=== PATIENT | male | born 1970 | race Caucasian/White ===

== ENCOUNTER 2016-10-27 10:09 | Emergency (ER) | payer OTHER, SELFPAY ==
[2016-10-27] MEDS ORDERED: methylPREDNISolone Acetate 40 mg/ml Vial ONE (10:21)
[2016-10-27] MEDS ORDERED: Dexamethasone 10 MG/ML VIAL ONE (10:21)
--- NOTE | 2016-10-27 11:13 | RAD ---
CHEST ONE VIEW: History: Cough. Comparison: 08-06-16 FINDINGS: The cardiac silhouette and pulmonary vasculature are unremarkable. Mediastinum is midline. There i s no confluent air space consolidation or evidence of pneumothorax. Old left rib fractures are gain demonstrated. IMPRESSION: No active cardiopulmonary abnormalities are demonstrated. POS: [facility]
[2016-10-27] MEDS ORDERED: Albuterol Sulfate 2.5 mg/0.5 ml Neb ONE ×2 (11:24→11:25)
--- NOTE | 2016-10-27 12:19 | ERRECORD ---
[facility] EMERGENCY RECORD HPI SHORTNESS OF BREATH (10:19 SHAN) CHIEF COMPLAINT: Patient presents for evaluation of shortness of breath, Patient presents for evaluation of adult male with shortness of breath; missed pcp apts, and couldn't get more refills. HISTORIAN: History provided by patient. QUALITY: Symptoms described as tightness, Symptoms described as wheezing. TIME COURSE: Gradual onset of symptoms. ASSOCIATED WITH: Associated with cough. EXACERBATED BY: Patient's condition exacerbated by nothing. RELIEVED BY: Patient's condition relieved by nothing. ROS (10:20 SHAN) CONSTITUTIONAL: Negative constitutional review of systems, Historian denies chills, denies fever. EYES: Negative eye review of systems. ENT: Negative ears, nose, throat review of systems. CARDIOVASCULAR: Negative cardiovascular review of systems, Historian denies chest pain, denies palpitations. RESPIRATORY: Historian reports cough, reports shortness of breath, reports wheezing. GI: Negative gastrointestinal review of systems, Historian denies abdominal pain, denies constipation, denies diarrhea. MUSCULOSKELETAL: Negative musculoskeletal review of systems. SKIN: Negative skin review of systems. NEUROLOGIC: Negative neurologic review of systems. ENDOCRINE: Negative endocrine review of systems. HEMO/LYMPHATIC: Normal hematologic/lymphatic system review. PSYCHIATRIC: Negative psychiatric review of systems. NOTES: All other ROS is negative except as listed in HPI. PAST MEDICAL HISTORY MEDICAL HISTORY: Flu vaccine not up to date, Tetanus 2013, Pneumococcal vaccine 2013, Past medical history includes pulmonary disease, asthma, COPD, Hep C, cirrhosis,. (10:19 AWAT) MALE SURGICAL HISTORY: LEFT WRIST ORTHO REPAIR, CYST REMOVED FROM RIGHT WRIST. (10:19 AWAT) PSYCHIATRIC HISTORY: No previous psychiatric history. (10:19 AWAT) SOCIAL HISTORY: Patient denies alcohol use, Patient is a former drug user, abused marijuana, Patient is a former tobacco user, smoked cigarettes. (10:19 AWAT) NOTES: I have reviewed and agree with the PMH/PSxH/FamHx/SocHx obtained by the nurse. (10:20 SHAN) KNOWN ALLERGIES codeine (Unconfirmed) codeine sulfate: Source: Patient, - CAUSES ITCHING Penicillins: Reaction: Rash &a-1R&a+25V*p+0X*[id number]*c202B*c15G*c2P*p-0X&a-25V&a+1R Name: Nitish Craven : 1970 M45 MedRec: [id number] AcctNum: [id number] Prepared: TueOct 27, 2016 12:27 by Interface Page 1 of 4 pMD [facility] EMERGENCY RECORD CURRENT MEDICATIONS (10:17 AWAT) Pulmicort: AMPUL FOR NEBULIZATION (ML) : Strength - 1 mg/2 mL : INHALATION Patient Dose: once a day. DuoNeb: AMPUL FOR NEBULIZATION (ML) : Strength - 0.5 mg-3 mg (2.5 mg base)/3 mL : INHALATION Patient Dose: Unknown. VITAL SIGNS VITAL SIGNS: BP: 140/86, Pulse: 85, Resp: 21, Pain: 0, O2 sat: 92 on Room Air, Time: 10/27/2016 10:14. (10:14 AWAT) Temp: 98.6 (Tympanic), Time: 10/27/2016 10:20. (10:20 AWAT) BP: 120/65, Pulse: 74, Resp: 18, Temp: 97.0, Pain: 0, O2 sat: 95 on RA, Time: 10/27/2016 12:15. (12:15 MDEB) PHYSICAL EXAM (10:20 SHAN) CONSTITUTIONAL: Vital signs reviewed, Patient appears non toxic, Patient alert and oriented to person, place and time, Pt is in no apparent distress. HEAD: Head exam included findings of head atraumatic, normocephalic. EYES: Eye exam included findings of eyelids normal to inspection, Pupils equally round and reactive to light, Extraocular muscles intact. ENT: ENT exam normal, Nose exam normal, no nasal deformity, no bleeding from nares, Pharynx exam normal, Mouth exam normal, mucous membranes moist. NECK: Neck exam included findings of normal range of motion, Trachea midline. RESPIRATORY CHEST: Extensive wheezing, mild to moderate, mild ronchi. CARDIOVASCULAR: Cardiovascular assessment normal, Cardiovascular exam included findings of heart rate regular rate and rhythm, Heart sounds normal. ABDOMEN MALE: Abdominal exam included findings of abdomen nontender, Bowel sounds normal, no mass, no pulsatile masses, no peritoneal signs, no rigidity, no guarding, no rebound. BACK: Back exam included findings of normal inspection, range of motion normal, no costovertebral angle tenderness. UPPER EXTREMITY: Upper extremity exam included findings of inspection normal, Range of motion normal. LOWER EXTREMITY: Lower extremity exam included findings of inspection normal, Range of motion normal. NEURO: Neuro exam findings include patient oriented to person, place and time, Speech normal, no focal motor deficits, no focal sensory deficits. SKIN: Skin exam included findings of skin warm, dry, and normal in color. &a-1R&a+25V*p+0X*b9833M*c202B*c15G*c2P*p-0X&a-25V&a+1R Name: Nitish Craven : 1970 M45 MedRec: [id number] AcctNum: [id number] Prepared: TueOct 27, 2016 12:27 by Interface Page 2 of 4 pMD [facility] EMERGENCY RECORD LYMPHATIC: Lymphatic exam normal. PSYCHIATRIC: Psychiatric exam included findings of patient oriented to person place and time, Normal affect. MEDICATION ADMINISTRATION SUMMARY Drug Name: albuterol sulfate 2.5 mg by nebulizer on, Dose Ordered: * , Route: Nebulize, Status: Given, Time: 11:25 10/27/2016, Drug Name: DuoNeb, Dose Ordered: 1 amp(s), Route: Nebulize, Status: Given, Time: 10:35 10/27/2016, Drug Name: depomedrol 120 mg IM, Dose Ordered: * , Route: Intramuscular, Status: Given, Time: 10:32 10/27/2016, Drug Name: decadron 6 mg IM, Dose Ordered: * , Route: Intramuscular, Status: Given, Time: 10:31 10/27/2016, Detailed record available in Medication Service section. DOCTOR NOTES (:) TEXT: Chest w/o acute changes; but old left rib fractures noted. DATA REVIEWED: Xray data reviewed. PROBLEM LIST Problem Name: ACUTE HEPATITIS C, Status: Active, Date Diagnosed: , Date Resolved: , Confirm Status: Unconfirmed, Problem Name: Asthma, Status: Active, Date Diagnosed: , Date Resolved: , Confirm Status: Unconfirmed. DIAGNOSIS (12:03 ) FINAL: PRIMARY: copd exacerbation, ADDITIONAL: ACUTE BRONCHOSPASM. PRESCRIPTION Symbicort: HFA AEROSOL WITH ADAPTER (GRAM) : 160 mcg-4.5 mcg/actuation : INHALATION : Quantity: 2 Unit: inhalation Route: INHALATION Schedule: 2 times a day (before meals) Dispense: 1 Unit: units May substitute. Refills: 1 . (12:04 JAIRO) NOTES: No Refills. (12:04 JAIRO) albuterol sulfate inhalation: VIAL, NEBULIZER (ML) : 2.5 mg/3 mL (0.083 %) : INHALATION : Quantity: 1 Unit: vial(s) Route: INHALATION Schedule: every 4 hours prn Dispense: 120 Unit: amp(s) May substitute. Refills: No Refills . (12: JAIRO) NOTES: No Refills. (12: JAIRO) Zithromax oral: CAPSULE : 250 mg : ORAL : Quantity: 1 Unit: tab(s) Route: ORAL Schedule: once a day Dispense: 8 Unit: tab(s) May substitute. Refills: No Refills . (12: JAIRO) NOTES: two now and one a day &a-1R&a+25V*p+0X*b1836A*c202B*c15G*c2P*p-0X&a-25V&a+1R Name: Nitish Craven : 1970 5 MedRec: [id number] AcctNum: [id number] Prepared: TueOct 27, 2016 12:27 by Interface Page 3 of 4 pMD [facility] EMERGENCY RECORD No Refills. (12: JAIRO) DISPOSITION PATIENT: Disposition Type: Discharge, Disposition: *Discharge Home. (12:03 JAIRO) Patient left the department. (12:21 SACHIN) Bobo: BILLY=ARGENIS Morales, Guillermo STEPHENSON=ARGENIS Gupta, Yaquelin GILL=MD García Stanley &a-1R&a+25V*p+0X*[id number]*c202B*c15G*c2P*p-0X&a-25V&a+1R Name: Nitish Craven : 1970 M45 MedRec: [id number] AcctNum: [id number] Prepared: TueOct 27, 2016 12:27 by Interface Page 4 of 4 pMD MTDD
--- NOTE | 2016-10-27 12:23 | PICIS ---
[facility] EMERGENCY RECORD TRIAGE (10:16 AWAT) TRIAGE NOTES: shortness of breath. He says he is out of Nebs & his PCP wouldnt fill it over the phone yesterday. He says he is a month overdue from seeing his PCP. (10:16 AWAT) PATIENT: NAME: Nitish Craven, AGE: 45, GENDER: male, : Sun 1970, TIME OF GREET: TueOct 27, 2016 10:10, PREFERRED LANGUAGE: Indian, ETHNICITY: Not or , FALL RISK: NO, ECODE BILLING MAP: [facility] ER, SSN: [id number], Zip Code: [address], KG WEIGHT: 108.86, PHONE: , , , PERSON ID: [id number], PCP: MD KAMLA, ERIC. (10:16 AWAT) COMPLAINT: DIFFICULTY BREATHING. (10:16 AWAT) ADMISSION: URGENCY: 4 Non Urgent, ADMISSION SOURCE: Home, TRANSPORT: Walk-in, BED: ED -05. (10:16 AWAT) SIRS SCORING: Heart Rate 55-109 (0), Temp range 96.8-101.1 (0), respiratory rate 12-24 (0), Mental Status altered: no (0). (10:19 AWAT) PROVIDERS: TRIAGE NURSE: Guillermo Morales RN. (10:16 AWAT) VITAL SIGNS: BP 140/86, Pulse 85, Resp 21, Pain 0, O2 Sat 92, on Room Air, Time 10/27/2016 10:14. (10:14 AWAT) PREVIOUS VISIT ALLERGIES: codeine sulfate, Penicillins. (10:16 AWAT) codeine sulfate, Penicillins. (10:19 AWAT) KNOWN ALLERGIES codeine (Unconfirmed) codeine sulfate: Source: Patient, - CAUSES ITCHING Penicillins: Reaction: Rash CURRENT MEDICATIONS (10:17 AWAT) Pulmicort: AMPUL FOR NEBULIZATION (ML) : Strength - 1 mg/2 mL : INHALATION Patient Dose: once a day. DuoNeb: AMPUL FOR NEBULIZATION (ML) : Strength - 0.5 mg-3 mg (2.5 mg base)/3 mL : INHALATION Patient Dose: Unknown. VITAL SIGNS VITAL SIGNS: BP: 140/86, Pulse: 85, Resp: 21, Pain: 0, O2 sat: 92 on Room Air, Time: 10/27/2016 10:14. (10:14 AWAT) Temp: 98.6 (Tympanic), Time: 10/27/2016 10:20. (10:20 AWAT) BP: 120/65, Pulse: 74, Resp: 18, Temp: 97.0, Pain: 0, O2 sat: 95 on RA, Time: 10/27/2016 12:15. (12:15 MDEB) NURSING ASSESSMENT: RESPIRATORY /CHEST (10:20 AWAT) CONSTITUTIONAL: Simple assessment performed, Patient arrives ambulatory, Gait steady, History obtained from patient, Patient appears comfortable, Patient cooperative, Patient alert, Oriented to person, place and time, Skin warm, Skin dry, Skin normal in color, &a-1R&a+25V*p+0X*s9235Q*c202B*c15G*c2P*p-0X&a-25V&a+1R Name: Nitish Craven : 1970 M45 MedRec: [id number] AcctNum: [id number] Prepared: TueOct 27, 2016 12:33 by Interface Page 1 of 7 pMD [facility] EMERGENCY RECORD Mucous membranes pink, Mucous membranes moist, Patient, poorly groomed, with poor personal hygiene, Patient complains of SHORTNESS OF BREATH. PAIN: DENIES PAIN. RESPIRATORY/CHEST: Lungs auscultated, Breath sounds with wheezing, to bilateral upper lobes, to the right middle lobe, to bilateral lower lobes, ALL LOBES COARSE WITH WHEEZING AUSCULTATED., Respiratory assessment findings include respiratory effort easy, Respirations regular, Conversing normally, Neck and chest exam findings include trachea midline, Chest expansion equal, Chest movement symmetrical, no signs of distress, no retractions noted, no cyanosis, no jugular vein distension, no tenderness to palpation, no crepitus noted, no subcutaneous emphysema noted, no deformity noted, no associated cough noted, no associated fever, no associated fume exposure. ENT: Ear assessment findings include ear normal to inspection, Nasal assessment findings include nose normal to inspection, Mouth and throat assessment findings include mouth inspection normal, no associated fever. NOTES: Emotional support needed and given, Patient tolerated procedure well, Notes: PT CALM & COOPERATIVE. SATS 92-93% ON ROOM AIR. PT SAYS HE JUST NEEDS MORE NEBS FOR HOME & IS OUT, AND DR CASON WOULDN'T CALL ANY IN FOR HIM YESTERDAY. HE ADMITS TO BEING APPROX 1 MONTH BEHIND ON ACTUALLY SEEING HIS DRDayana... SAFETY: Side rails up, Cart/Stretcher in lowest position, Family at bedside, Call light within reach, Hospital ID band on, Physician notified of above findings. NURSING PROCEDURE: DISCHARGE NOTE (12:15 MDEB) DISCHARGE: Patient discharged to home, ambulating without assistance, family driving, accompanied by other family member, Summary of Care printed/ provided, Patient requested and was provided an electronic copy of Discharge Instructions, Transition record given to patient, Discharge instructions given to patient, Simple or moderate discharge teaching performed, MEDICATIONS, Prescriptions given and instructions on side effects given, Above person(s) verbalized understanding of discharge instructions and follow-up care, Patient treated and evaluated by physician. BELONGINGS: Belongings remain with patient, Valuables remain with patient. NOTES: Emotional support needed and given, Patient tolerated procedure well. VITAL SIGNS: BP: 120, / 65, Pulse: 74, Resp: 18, Temp: 97.0, Pain: 0, O2 sat: 95, on: RA. NURSING PROCEDURE: NURSE NOTES (11:44 MDEB) NURSES NOTES: Notes: POST ALBUTEROL TREATMENT - COURSE LUNG SOUNDS TO LLL, OTHERWISE CLEAR - NO WHEEZING NOTED. NURSING PROCEDURE: RESPIRATORY INTERVENTIONS (10:32 AWAT) &a-1R&a+25V*p+0X*n2535Q*c202B*c15G*c2P*p-0X&a-25V&a+1R Name: Nitish Craven : 1970 M45 MedRec: [id number] AcctNum: [id number] Prepared: TueOct 27, 2016 12:33 by Interface Page 2 of 7 pMD [facility] EMERGENCY RECORD PATIENT IDENTIFIER: Patient actively involved in identification process, Patient's identity verified by patient stating name, Patient's identity verified by patient stating date, Patient's identity verified by hospital ID bracelet, Patient's identity verified by family member. RESPIRATORY INTERVENTIONS: Respiratory interventions indicated for wheezing, Pre-intervention breath sounds with wheezing, ALL LOBES WHEEZY AND COARSE, Pre-intervention oxygen saturation 92%, by adult/pediatric oxisensor, multiple pulse oximetry reading, Patient given ALBUTEROL with ATROVENT, Single dose nebulizer, Dose: 1 UNIT DOSE, Patient returned demonstration of use of aerochamber, Notes: WITH HAND HELD CHAMBER. ADMINISTERED WITH O2 AT 7L/NC. SAFETY: Side rails up, Cart/Stretcher in lowest position, Family at bedside, Call light within reach, Hospital ID band on, Physician notified of above findings. ORDER DETAILS Order Name: XR Chest 1 View Portable, Status: Active, Time: 10:19 10/27/2016, User: JAIRO, - Ordered for: MD Ricky, Darinel, - Entered by: MD García Stanley - TueOct 27, 2016 10:19, - Quantity: 1. MEDICATION ADMINISTRATION SUMMARY Drug Name: albuterol sulfate 2.5 mg by nebulizer on, Dose Ordered: * , Route: Nebulize, Status: Given, Time: 11:25 10/27/2016, Drug Name: DuoNeb, Dose Ordered: 1 amp(s), Route: Nebulize, Status: Given, Time: 10:35 10/27/2016, Drug Name: depomedrol 120 mg IM, Dose Ordered: * , Route: Intramuscular, Status: Given, Time: 10:32 10/27/2016, Drug Name: decadron 6 mg IM, Dose Ordered: * , Route: Intramuscular, Status: Given, Time: 10:31 10/27/2016, Detailed record available in Medication Service section. MEDICATION SERVICE albuterol sulfate 2.5 mg by nebulizer once: Free Text order: albuterol sulfate 2.5 mg by nebulizer once : : Nebulize Ordered by: Darinel García MD Entered by: Darinel García MD TueOct 27, 2016 11:20 Documented as given by: Yaquelin Gupta RN TueOct 27, 2016 11:25 Patient, Medication, Dose, Route and Time verified prior to administration. Amount given: 2.5 mg, Site: Medication administered via Hand-held nebulizer, With oxygen, Correct patient, time, route, dose and medication confirmed prior to administration, Patient advised of actions and side-effects prior to administration, Allergies confirmed and medications reviewed prior to administration, Patient in position &a-1R&a+25V*p+0X*w2161T*c202B*c15G*c2P*p-0X&a-25V&a+1R Name: Nitish Craven : 1970 M45 MedRec: [id number] AcctNum: [id number] Prepared: TueOct 27, 2016 12:33 by Interface Page 3 of 7 pMD [facility] EMERGENCY RECORD of comfort, Side rails up, Cart in lowest position, Family at bedside. decadron 6 mg IM: Free Text order: decadron 6 mg IM : : Intramuscular Ordered by: Darinel García MD Entered by: Darinel García MD TueOct 27, 2016 10:18 , Acknowledged by: Guillermo Morales RN TueOct 27, 2016 10:26 Documented as given by: Guillermo Morales RN TueOct 27, 2016 10:31 Patient, Medication, Dose, Route and Time verified prior to administration. Amount given: 6MG, Medication administered to left deltoid, Correct patient, time, route, dose and medication confirmed prior to administration, Patient advised of actions and side-effects prior to administration, Allergies confirmed and medications reviewed prior to administration, Administered by AWATERS, Patient in position of comfort, Side rails up, Cart in lowest position, Family at bedside. depomedrol 120 mg IM: Free Text order: depomedrol 120 mg IM : : Intramuscular Ordered by: Darinel García MD Entered by: Darinel García MD TueOct 27, 2016 10:18 Documented as given by: Guillermo Morales RN TueOct 27, 2016 10:32 Patient, Medication, Dose, Route and Time verified prior to administration. Amount given: 120MG, Medication administered to right buttock, Correct patient, time, route, dose and medication confirmed prior to administration, Patient advised of actions and side-effects prior to administration, Allergies confirmed and medications reviewed prior to administration, Administered by AWATERS, Patient in position of comfort, Side rails up, Cart in lowest position, Family at bedside. DuoNeb: Order: DuoNeb (ipratropium bromide/albuterol sulfate) - Dose: 1 amp(s) : Nebulize Schedule: Now Ordered by: Darinel García MD Entered by: Darinel García MD TueOct 27, 2016 10:18 , Acknowledged by: Guillermo Morales RN TueOct 27, 2016 10:26 Documented as given by: Guillermo Morales RN TueOct 27, 2016 10:35 Patient, Medication, Dose, Route and Time verified prior to administration. Amount given: 1 NEB, Site: Medication administered via Hand-held nebulizer, With oxygen, Correct patient, time, route, dose and medication confirmed prior to administration, Patient advised of actions and side-effects prior to administration, Allergies confirmed and medications reviewed prior to administration, Administered by JULIAN MORE, Patient in position of comfort, Side rails up, Cart in lowest position, Family at bedside. HPI SHORTNESS OF BREATH (10:19 JAIRO) CHIEF COMPLAINT: Patient presents for evaluation of shortness of breath, Patient presents for evaluation of adult male with shortness of breath; missed pcp apts, and &a-1R&a+25V*p+0X*d7431D*c202B*c15G*c2P*p-0X&a-25V&a+1R Name: Nitish Craven : 1970 M45 MedRec: [id number] AcctNum: [id number] Prepared: TueOct 27, 2016 12:33 by Interface Page 4 of 7 pMD [facility] EMERGENCY RECORD couldn't get more refills. HISTORIAN: History provided by patient. QUALITY: Symptoms described as tightness, Symptoms described as wheezing. TIME COURSE: Gradual onset of symptoms. ASSOCIATED WITH: Associated with cough. EXACERBATED BY: Patient's condition exacerbated by nothing. RELIEVED BY: Patient's condition relieved by nothing. ROS (10:20 SHAN) CONSTITUTIONAL: Negative constitutional review of systems, Historian denies chills, denies fever. EYES: Negative eye review of systems. ENT: Negative ears, nose, throat review of systems. CARDIOVASCULAR: Negative cardiovascular review of systems, Historian denies chest pain, denies palpitations. RESPIRATORY: Historian reports cough, reports shortness of breath, reports wheezing. GI: Negative gastrointestinal review of systems, Historian denies abdominal pain, denies constipation, denies diarrhea. MUSCULOSKELETAL: Negative musculoskeletal review of systems. SKIN: Negative skin review of systems. NEUROLOGIC: Negative neurologic review of systems. ENDOCRINE: Negative endocrine review of systems. HEMO/LYMPHATIC: Normal hematologic/lymphatic system review. PSYCHIATRIC: Negative psychiatric review of systems. NOTES: All other ROS is negative except as listed in HPI. PAST MEDICAL HISTORY MEDICAL HISTORY: Flu vaccine not up to date, Tetanus 2014, Pneumococcal vaccine 2014, Past medical history includes pulmonary disease, asthma, COPD, Hep C, cirrhosis,. (10:19 AWAT) MALE SURGICAL HISTORY: LEFT WRIST ORTHO REPAIR, CYST REMOVED FROM RIGHT WRIST. (10:19 AWAT) PSYCHIATRIC HISTORY: No previous psychiatric history. (10:19 AWAT) SOCIAL HISTORY: Patient denies alcohol use, Patient is a former drug user, abused marijuana, Patient is a former tobacco user, smoked cigarettes. (10:19 AWAT) NOTES: I have reviewed and agree with the PMH/PSxH/FamHx/SocHx obtained by the nurse. (10:20 SHAN) PHYSICAL EXAM (10:20 SHAN) CONSTITUTIONAL: Vital signs reviewed, Patient appears non toxic, Patient alert and oriented to person, place and time, Pt is in no apparent distress. HEAD: Head exam included findings of head atraumatic, normocephalic. EYES: Eye exam included findings of eyelids normal to inspection, Pupils equally round and reactive to light, Extraocular muscles &a-1R&a+25V*p+0X*g8987A*c202B*c15G*c2P*p-0X&a-25V&a+1R Name: Nitish Craven : 1970 M45 MedRec: [id number] AcctNum: [id number] Prepared: TueOct 27, 2016 12:33 by Interface Page 5 of 7 pMD [facility] EMERGENCY RECORD intact. ENT: ENT exam normal, Nose exam normal, no nasal deformity, no bleeding from nares, Pharynx exam normal, Mouth exam normal, mucous membranes moist. NECK: Neck exam included findings of normal range of motion, Trachea midline. RESPIRATORY CHEST: Extensive wheezing, mild to moderate, mild ronchi. CARDIOVASCULAR: Cardiovascular assessment normal, Cardiovascular exam included findings of heart rate regular rate and rhythm, Heart sounds normal. ABDOMEN MALE: Abdominal exam included findings of abdomen nontender, Bowel sounds normal, no mass, no pulsatile masses, no peritoneal signs, no rigidity, no guarding, no rebound. BACK: Back exam included findings of normal inspection, range of motion normal, no costovertebral angle tenderness. UPPER EXTREMITY: Upper extremity exam included findings of inspection normal, Range of motion normal. LOWER EXTREMITY: Lower extremity exam included findings of inspection normal, Range of motion normal. NEURO: Neuro exam findings include patient oriented to person, place and time, Speech normal, no focal motor deficits, no focal sensory deficits. SKIN: Skin exam included findings of skin warm, dry, and normal in color. LYMPHATIC: Lymphatic exam normal. PSYCHIATRIC: Psychiatric exam included findings of patient oriented to person place and time, Normal affect. EVENTS TRANSFER: Triage to Emergency Main ED -05. (TueOct 27, 2016 10:16 AWAT) Removed from Emergency Main ED -05. (12:21 SACHIN) DOCTOR NOTES (11: JAIRO) TEXT: Chest w/o acute changes; but old left rib fractures noted. DATA REVIEWED: Xray data reviewed. PROBLEM LIST Problem Name: ACUTE HEPATITIS C, Status: Active, Date Diagnosed: , Date Resolved: , Confirm Status: Unconfirmed, Problem Name: Asthma, Status: Active, Date Diagnosed: , Date Resolved: , Confirm Status: Unconfirmed. DIAGNOSIS (12:03 JAIRO) FINAL: PRIMARY: copd exacerbation, ADDITIONAL: ACUTE BRONCHOSPASM. &a-1R&a+25V*p+0X*u1741L*c202B*c15G*c2P*p-0X&a-25V&a+1R Name: Nitish Craven : 1970 M45 MedRec: [id number] AcctNum: [id number] Prepared: TueOct 27, 2016 12:33 by Interface Page 6 of 7 pMD [facility] EMERGENCY RECORD DISPOSITION PATIENT: Disposition Type: Discharge, Disposition: *Discharge Home. (12:03 JAIRO) Patient left the department. (12:21 MDCLAUDETTE) INSTRUCTION (12:07 JAIRO) DISCHARGE: COPD FLARE. FOLLOWUP: MD KAMLA, [facility], [facility], [address] [place] [id number], [phone]. SPECIAL: 1. antibiotic as directed 2. symbicort as prior 3. albuterol four times a day if needed by nebulizer 4. followup soon with regular provider 5. return if condition worsens. PRESCRIPTION Symbicort: HFA AEROSOL WITH ADAPTER (GRAM) : 160 mcg-4.5 mcg/actuation : INHALATION : Quantity: 2 Unit: inhalation Route: INHALATION Schedule: 2 times a day (before meals) Dispense: 1 Unit: units May substitute. Refills: 1 . (12: [facility]) NOTES: No Refills. (12: JAIRO) albuterol sulfate inhalation: VIAL, NEBULIZER (ML) : 2.5 mg/3 mL (0.083 %) : INHALATION : Quantity: 1 Unit: vial(s) Route: INHALATION Schedule: every 4 hours prn Dispense: 120 Unit: amp(s) May substitute. Refills: No Refills . (12: [facility]) NOTES: No Refills. (12: [facility]) Zithromax oral: CAPSULE : 250 mg : ORAL : Quantity: 1 Unit: tab(s) Route: ORAL Schedule: once a day Dispense: 8 Unit: tab(s) May substitute. Refills: No Refills . (12: [facility]) NOTES: two now and one a day No Refills. (12: [facility]) IMAGING *DISCHARGE INSTRUCTIONS RECEIPT: Image captured from scanner. (12:20 MD) Page 2 added. Image captured from scanner. (12:20 MD) *SUPPLY CHARGE SHEET: Image captured from scanner. (12:21 [facility]) ADMIN (12: [facility]) DIGITAL SIGNATURE: MD García Stanley. Bobo: BILLY=ARGENIS Morales, Guillermo MDCLAUDETTE=ARGENIS Gupta, Yaquelin GILL=MD García Stanley &a-1R&a+25V*p+0X*m8805L*c202B*c15G*c2P*p-0X&a-25V&a+1R Name: Nitish Craven : 1970 M45 MedRec: [id number] AcctNum: [id number] Prepared: TueOct 27, 2016 12:33 by Interface Page 7 of 7 pMD MTDD
== END 2016-10-27 12:15 | disposition home or self-care (01) ==
LOC: MADERS 10:09
DX: J44.1 Chronic obstructive pulmonary disease with (acute) exacerbation (principal); J98.01 Acute bronchospasm
CPT/HCPCS: 71010; 96372; J1030; J1040; J1100; J7611; J7620

== ENCOUNTER 2017-02-18 14:38 | Emergency (ER) | payer SELFPAY ==
[2017-02-18] MEDS ORDERED: methylPREDNISolone Sod Succ/PF 125 MG/2 ML VIAL ONE (15:00)
--- NOTE | 2017-02-18 15:07 | RAD ---
AP VIEW OF THE CHEST: 02/18/17 INDICATION: Dyspnea. COMPARISON: Prior exam dated 10/27/16. FINDINGS: The lungs are clear. There are healed fracture deformities involving the left posterolateral chest w all. Cardiomediastinal silhouette is normal. No pleural effusion or pneumothorax is evident. IMPRESSION: No acute cardiopulmonary abnormality. POS: [facility]
== END 2017-02-18 16:08 | disposition home or self-care (01) ==
LOC: MADERS 14:38
DX: J44.1 Chronic obstructive pulmonary disease with (acute) exacerbation (principal); J45.909 Unspecified asthma, uncomplicated; K74.60 Unspecified cirrhosis of liver; Z86.19 Personal history of other infectious and parasitic diseases; Z87.891 Personal history of nicotine dependence; Z79.899 Other long term (current) drug therapy
CPT/HCPCS: 71010; 93005; 96372; J2930; J7620

== ENCOUNTER 2017-06-27 23:04 | Emergency (ER) | payer SELFPAY ==
[2017-06-28] MEDS ORDERED: Lidocaine 1% w/Epinephrine 1:100K 20 ML VIAL ONE (00:31)
[2017-06-28] MEDS ORDERED: Clindamycin 150 MG CAP ONE (01:07)
== END 2017-06-28 01:15 | disposition home or self-care (01) ==
LOC: MADERS 23:04
DX: L02.415 Cutaneous abscess of right lower limb (principal); J44.9 Chronic obstructive pulmonary disease, unspecified; K74.60 Unspecified cirrhosis of liver; F17.220 Nicotine dependence, chewing tobacco, uncomplicated
CPT/HCPCS: 10060; 87070; 87205; J2001

== ENCOUNTER 2017-06-29 19:14 | Emergency (ER) | payer SELFPAY ==
[2017-06-29] MEDS ORDERED: Sulfameth/Trimethoprim DS 800-160mg TAB ONE (19:42)
[2017-06-29] MEDS ORDERED: Cephalexin 500 MG CAP ONE (19:51)
[2017-06-29] MEDS ORDERED: traMADol HCl 50 MG TAB ONE (20:08)
== END 2017-06-29 20:15 | disposition home or self-care (01) ==
LOC: MADERS 19:14
DX: L02.415 Cutaneous abscess of right lower limb (principal); J44.9 Chronic obstructive pulmonary disease, unspecified; K74.60 Unspecified cirrhosis of liver; F17.210 Nicotine dependence, cigarettes, uncomplicated; Z48.01 Encounter for change or removal of surgical wound dressing; Z79.899 Other long term (current) drug therapy
CPT/HCPCS: 99282

== ENCOUNTER 2017-08-17 21:35 | Emergency (ER) | payer SELFPAY ==
[2017-08-17] MEDS ORDERED: predniSONE 20 MG TAB ONE (21:50)
[2017-08-17] MEDS ORDERED: Ventolin HFA Inhaler 60 PUFF INHALER ONE (22:17)
== END 2017-08-17 22:30 | disposition home or self-care (01) ==
LOC: MADERS 21:35
DX: J44.1 Chronic obstructive pulmonary disease with (acute) exacerbation (principal); J45.909 Unspecified asthma, uncomplicated; F17.220 Nicotine dependence, chewing tobacco, uncomplicated; Z79.899 Other long term (current) drug therapy
CPT/HCPCS: 94640; J7506; J7620

== ENCOUNTER 2017-08-28 20:01 | Emergency (ER) | payer SELFPAY ==
[~2017-08-28 20:01] MED LIST: Sodium Chloride 0.9% 1,000 ML BAG ONE
[2017-08-28] MEDS ORDERED: Azithromycin 250 MG TAB ONE (21:12)
[2017-08-28] MEDS ORDERED: methylPREDNISolone Sod Succ/PF 125 MG/2 ML VIAL ONE (21:12)
[2017-08-28] MEDS ORDERED: Dexamethasone 10 MG/ML VIAL ONE (21:12)
[2017-08-28] MEDS ORDERED: Magnesium Sulfate 2 GM/NS 0.9% 50 ML BAG ONE (21:20)
[2017-08-28 21:29] LABS: #Basophils 0.1 thou/uL (0.0-0.2); #Eosinphils 0.3 thou/uL (0.0-0.7); #Lymphocytes 3.3 thou/uL (1.20-3.40); #Monocytes 0.8 thou/uL (0.11-0.59); %Basophils 1.2 % (0.0-1.0); %Lymphocytes 31.5 % (21.0-51.0); %Monocytes 7.8 % (0.0-10.0); %Neutrophils 56.4 % (42.0-75.0); Hemoglobin 16.2 g/dL (14.0-18.0); Mean Corpuscular HGB CONC 33.9 g/dL (32.0-36.0); Mean Corpuscular Hemoglobin 30.7 pg (27.0-31.0); Mean Corpuscular Volume 90.5 fl (80.0-94.0); Mean Platelet Volume 7.9 fL (7.4-10.4); Platelet Count 273 thou/uL (130-400); RBC Distribution Width 12.5 % (11.5-14.5); Red Blood Cell (RBC) Count 5.29 mill/uL (4.70-6.10); White Blood Cell (WBC) Count 10.6 thou/uL (4.8-10.8)
[2017-08-28 21:38] LABS: PTT 30.6 SEC (22.9-36.1); Prothrombin Time 13.2 SEC (12.0-14.7)
[2017-08-28 21:50] LABS: ALT (SGPT) 16 U/L (8-55); AST (SGOT) 15 U/L (5-34); Albumin 3.4 g/dL (3.5-5.0); Alkaline Phosphatase 45 U/L (40-150); Anion Gap 15 mmol/L (10-20); BUN (Urea Nitrogen) 4 mg/dL (8.9-20.6); Bilirubin, Total 0.6 mg/dL (0.2-1.2); CK (CPK) 105 U/L (30-200); Calc. Creatinine Clearance 0 mL/min (70-130); Calcium 8.5 mg/dL (7.8-10.44); Carbon Dioxide 20 mmol/L (22-29); Chloride 109 mmol/L (98-107); Estimated GFR-MDRD Greater than 90; Glucose 68 mg/dL (70-105); Potassium 3.5 mmol/L (3.5-5.1); Protein, Total 6.4 g/dL (6.0-8.3); Sodium 140 mmol/L (136-145)
[2017-08-28 21:55] LABS: CKMB 1.1 ng/mL (0-6.6); Troponin I Less than 0.010 ng/mL (< 0.028)
--- NOTE | 2017-08-28 22:31 | RAD ---
CHEST ONE VIEW: Comparison: 06-09-17 History: Dyspnea. FINDINGS: Normal cardiac silhouette. The pulmonary vessels and hilum are normal. No consolidation or mass. No pneumothorax or osseous abnormality. IMPRESSION: No acute cardiopulmonary process. POS: [facility]
[2017-08-28] MEDS ORDERED: Ventolin HFA Inhaler 60 PUFF INHALER ONE (23:03)
== END 2017-08-28 23:12 | disposition home or self-care (01) ==
LOC: MADERS 20:01
DX: J45.909 Unspecified asthma, uncomplicated (principal); Z87.891 Personal history of nicotine dependence; Z79.899 Other long term (current) drug therapy
CPT/HCPCS: 36415; 71010; 80053; 82553; 83880; 84484; 85025; 85610; 85730; 93005; 94640; 94760; 96361; 96365; 96375; J1100; J2930; J3475; J7050; J7620

== ENCOUNTER 2018-02-06 01:46 | Emergency (ER) | payer SELFPAY ==
[2018-02-06] MEDS ORDERED: predniSONE 20 MG TAB ONE (02:07)
[2018-02-06] MEDS ORDERED: Azithromycin 250 MG TAB ONE (02:14)
--- NOTE | 2018-02-06 08:37 | RAD ---
UPRIGHT PORTABLE CHEST 1 VIEW: HISTORY: A 47-year-old male with a history of dyspnea. COMPARISON: 08/28/17. FINDINGS: Heart size is normal. Minimal increased markings bilaterally but stable. Healed left rib fractures. IMPRESSION: Minimal stable increased markings without acute fracture or dislocation. POS: [facility]
== END 2018-02-06 02:40 | disposition home or self-care (01) ==
LOC: MADERS 01:46
DX: J44.0 Chronic obstructive pulmonary disease with (acute) lower respiratory infection (principal); J20.9 Acute bronchitis, unspecified; F17.220 Nicotine dependence, chewing tobacco, uncomplicated
CPT/HCPCS: 71045; 94640; 96372; J1040; J7506; J7620

== ENCOUNTER 2018-04-27 01:07 | Emergency (ER) | payer SELFPAY | END 2018-04-27 01:50 | disposition home or self-care (01) | LOC: MADERS 01:07 | DX: G89.18 Other acute postprocedural pain (principal); M26.623 Arthralgia of bilateral temporomandibular joint; J44.9 Chronic obstructive pulmonary disease, unspecified; Z87.891 Personal history of nicotine dependence; Z79.891 Long term (current) use of opiate analgesic; Z79.899 Other long term (current) drug therapy | CPT/HCPCS: 99283 ==

== ENCOUNTER 2018-09-10 20:58 | Emergency (ER) | payer SELFPAY ==
[2018-09-10] MEDS ORDERED: predniSONE 20 MG TAB ONE (21:31)
== END 2018-09-10 22:01 | disposition home or self-care (01) ==
LOC: MADERS 20:58
DX: J44.1 Chronic obstructive pulmonary disease with (acute) exacerbation (principal); F17.220 Nicotine dependence, chewing tobacco, uncomplicated; Z79.899 Other long term (current) drug therapy
CPT/HCPCS: J7506; J7620

== ENCOUNTER 2018-11-14 17:57 | Emergency (ER) | payer SELFPAY ==
[2018-11-14] MEDS ORDERED: Dexamethasone 4 MG TAB ONE (18:52)
--- NOTE | 2018-11-14 20:34 | RAD ---
2 VIEW CHEST: Date: 11/14/18 COMPARISON: 02/06/18. INDICATION: COPD. Productive cough. FINDINGS: There is patchy left basilar density. Subtle patchy density seen at the right lung base. Cardiac silh ouette is normal in size. No significant effusion or discrete pneumothorax. Subtle multiple left rib deformities are grossly stable. IMPRESSION: Patchy left basilar density and subtle right basilar density. These findings may be related to pneumo ama in the correct clinical context. Recommend completion of treatment regimen with imaging follow-up to confirm resolution. CODE T. POS: [facility]
== END 2018-11-14 19:50 | disposition home or self-care (01) ==
LOC: MADERS 17:57
DX: J18.9 Pneumonia, unspecified organism (principal); J44.1 Chronic obstructive pulmonary disease with (acute) exacerbation; F17.220 Nicotine dependence, chewing tobacco, uncomplicated; Z79.891 Long term (current) use of opiate analgesic; Z79.899 Other long term (current) drug therapy; Z79.51 Long term (current) use of inhaled steroids
CPT/HCPCS: 71046; J7620; J8540

== ENCOUNTER 2018-12-10 09:35 | Emergency (ER) | payer SELFPAY ==
[2018-12-10] MEDS ORDERED: Dexamethasone 4 MG TAB ONE (10:40)
--- NOTE | 2018-12-10 12:20 | RAD ---
TWO VIEWS OF THE CHEST: DATE: 12/10/2018. COMPARISON: 11/14/2018. HISTORY: COPD, SHORTNESS OF BREATH, AND COUGH. FINDINGS: Heart And mediastinal contours are stable. There is mild prominence of the cardiac silhouette. Ther e is increased linear interstitial density and pulmonary hyperinflation, consistent with the provided history of COPD. There is no focal consolidation or alveolar edema noted. IMPRESSION: Chronic findings as detailed above. No focal consolidation or alveolar edema. POS: [facility]
== END 2018-12-10 11:14 | disposition home or self-care (01) ==
LOC: MADERS 09:35
DX: J44.9 Chronic obstructive pulmonary disease, unspecified (principal); F17.220 Nicotine dependence, chewing tobacco, uncomplicated; Z79.51 Long term (current) use of inhaled steroids
CPT/HCPCS: 71046; 87804; J7620; J8540

== ENCOUNTER 2019-06-11 12:10 | Emergency (ER) | payer SELFPAY ==
[2019-06-11] MEDS ORDERED: predniSONE 20 MG TAB ONE (12:43)
== END 2019-06-11 13:37 | disposition home or self-care (01) ==
LOC: MADERS 12:10
DX: J44.1 Chronic obstructive pulmonary disease with (acute) exacerbation (principal); F17.220 Nicotine dependence, chewing tobacco, uncomplicated; Z79.891 Long term (current) use of opiate analgesic; Z79.899 Other long term (current) drug therapy; Z79.51 Long term (current) use of inhaled steroids
CPT/HCPCS: J7512; J7620

== ENCOUNTER 2019-09-12 00:10 | Emergency (ER) | payer SELFPAY ==
[2019-09-12] MEDS ORDERED: predniSONE 20 MG TAB ONE (00:29)
== END 2019-09-12 01:02 | disposition home or self-care (01) ==
LOC: MADERS 00:10
DX: J44.1 Chronic obstructive pulmonary disease with (acute) exacerbation (principal); Z87.891 Personal history of nicotine dependence
CPT/HCPCS: 99284; J7512; J7620

== ENCOUNTER 2020-05-18 22:37 | Emergency (ER) | payer SELFPAY ==
[2020-05-18] MEDS ORDERED: methylPREDNISolone Sod Succ/PF 125 MG/2 ML VIAL ONE (23:49)
[2020-05-18 23:56] LABS: ALT (SGPT) 14 U/L (8-55); AST (SGOT) 15 U/L (5-34); Albumin 3.9 g/dL (3.5-5.0); Alkaline Phosphatase 68 U/L (40-110); Anion Gap 15 mmol/L (10-20); BUN (Urea Nitrogen) 7 mg/dL (8.9-20.6); Bilirubin, Total 0.3 mg/dL (0.2-1.2); Calc. Creatinine Clearance 0 mL/min (70-130); Carbon Dioxide 24 mmol/L (22-29); Chloride 104 mmol/L (98-107); Estimated GFR-MDRD 80; Globulin 3.8 g/dL (2.4-3.5); Glucose 99 mg/dL (70-105); Protein, Total 7.7 g/dL (6.0-8.3); Sodium 139 mmol/L (136-145)
[2020-05-19 00:01] LABS: Eosinophils 1 % (0-10); Hemoglobin 11.6 g/dL (14.0-18.0); Hypochromia SLIGHT = 6-15 cells (100X) (0-5/hpf); Lymphocytes 35 % (21-51); MDiff Complete? YES; Mean Corpuscular Hemoglobin 23.1 pg (27.0-31.0); Mean Corpuscular Volume 77.1 fL (78.0-98.0); Mean Platelet Volume 8.5 fL (7.4-10.4); Monocytes 6 % (0-10); Neutrophil 58 % (42-75); Platelet Count 399 thou/uL (130-400); RBC Distribution Width 15.3 % (11.5-14.5); Red Blood Cell (RBC) Count 5.03 mill/uL (4.70-6.10); White Blood Cell (WBC) Count 8.3 thou/uL (4.8-10.8)
--- NOTE | 2020-05-19 00:03 | RAD ---
EXAM: Single view of the chest HISTORY: Dyspnea COMPARISON: 02/06/2018 FINDINGS: Single view of the chest shows a normal sized cardiomediastinal silhouette. There is no colt dence of consolidation, mass, or pleural effusion. The bones are unremarkable IMPRESSION: No evidence of acute cardiopulmonary disease
== END 2020-05-19 00:47 | disposition home or self-care (01) ==
LOC: MADERS 22:37
DX: J44.1 Chronic obstructive pulmonary disease with (acute) exacerbation (principal); R06.03 Acute respiratory distress; F32.9 Major depressive disorder, single episode, unspecified; F17.220 Nicotine dependence, chewing tobacco, uncomplicated
CPT/HCPCS: 71045; 80053; 84484; 85025; 94760; 96372; J2930; J7620

== ENCOUNTER 2020-09-02 16:10 | Emergency (ER) | payer SELFPAY ==
[2020-09-02] MEDS ORDERED: Azithromycin 250 MG TAB ONE (16:36)
[2020-09-02] MEDS ORDERED: Sodium Chloride 0.9% 100 ML ONE (16:36)
[2020-09-02] MEDS ORDERED: methylPREDNISolone Sod Succ/PF 125 MG/2 ML VIAL ONE ×2 (16:36→18:31)
[2020-09-02] MEDS ORDERED: cefTRIAXone\\ROCEPHIN 2 GM VIAL ONE (16:36)
[2020-09-02 18:10] LABS: ALT (SGPT) 15 U/L (8-55); AST (SGOT) 17 U/L (5-34); Albumin 3.7 g/dL (3.5-5.0); Alkaline Phosphatase 60 U/L (40-110); Anion Gap 14 mmol/L (10-20); BUN (Urea Nitrogen) 10 mg/dL (8.9-20.6); Bilirubin, Total 0.2 mg/dL (0.2-1.2); CK (CPK) 50 U/L (30-200); Calc. Creatinine Clearance 0 mL/min (70-130); Calcium 8.6 mg/dL (7.8-10.44); Carbon Dioxide 23 mmol/L (22-29); Chloride 105 mmol/L (98-107); Estimated GFR-MDRD Greater than 90; Globulin 3.1 g/dL (2.4-3.5); Glucose 98 mg/dL (70-105); Potassium 3.3 mmol/L (3.5-5.1); Protein, Total 6.8 g/dL (6.0-8.3); Sodium 139 mmol/L (136-145)
[2020-09-02 18:11] LABS: #Basophils 0.1 thou/uL (0.0-0.2); #Eosinphils 0.3 thou/uL (0.0-0.7); #Lymphocytes 2.5 thou/uL (1.20-3.40); #Monocytes 0.6 thou/uL (0.11-0.59); #Neutrophils 2.9 thou/uL (1.40-6.50); %Basophils 1.7 % (0.0-1.0); %Eosinophils 4.1 % (0.0-10.0); %Lymphocytes 39.2 % (21.0-51.0); Anisocytosis SLIGHT = 6-15 cells (100X) (0-5/hpf); Hemoglobin 11.7 g/dL (14.0-18.0); Hypochromia SLIGHT = 6-15 cells (100X) (0-5/hpf); MDiff Complete? YES; Mean Corpuscular HGB CONC 30.7 g/dL (32.0-36.0); Mean Corpuscular Volume 78.1 fL (78.0-98.0); Mean Platelet Volume 8.7 fL (7.4-10.4); Platelet Count 321 thou/uL (130-400); Platelet Morphology Comment Appears Adequate; RBC Distribution Width 13.8 % (11.5-14.5); Red Blood Cell (RBC) Count 4.88 mill/uL (4.70-6.10); White Blood Cell (WBC) Count 6.4 thou/uL (4.8-10.8)
--- NOTE | 2020-09-02 18:50 | RAD ---
PORTABLE CHEST: 09/02/20 HISTORY: Dyspnea. COMPARISON: 05/19/20. Lungs are clear. No infiltrate. Heart and mediastinum unremarkable. IMPRESSION: No acute process. POS: [facility]
[2020-09-03 18:47] LABS: SARS-CoV-2 MS2 Positive; SARS-CoV-2 N Gene Negative; SARS-CoV-2 S Gene Negative; SARS-CoV-2 by NAA Not Detected (NotDetected); SARS-CoV-2 orf1ab Negative
== END 2020-09-02 18:38 | disposition home or self-care (01) ==
LOC: MADERS 16:10
DX: J44.1 Chronic obstructive pulmonary disease with (acute) exacerbation (principal); R06.03 Acute respiratory distress; Z20.828 Contact with and (suspected) exposure to other viral communicable diseases; Z87.891 Personal history of nicotine dependence; Z79.899 Other long term (current) drug therapy
CPT/HCPCS: 36415; 71045; 80053; 82550; 83880; 84484; 85025; 87635; 87804; 94760; 96365; 96375; 96376; J0696; J2930; J3490; J7050; U0003

== ENCOUNTER 2020-09-05 07:05 | Emergency (ER) | payer SELFPAY | END 2020-09-05 07:55 | disposition home or self-care (01) | LOC: MADERS 07:05 | DX: B35.8 Other dermatophytoses (principal); K52.1 Toxic gastroenteritis and colitis; T36.5X5A Adverse effect of aminoglycosides, initial encounter; J44.1 Chronic obstructive pulmonary disease with (acute) exacerbation; K74.60 Unspecified cirrhosis of liver; Z87.891 Personal history of nicotine dependence; Z79.899 Other long term (current) drug therapy; Z79.891 Long term (current) use of opiate analgesic | CPT/HCPCS: 99283 ==

== ENCOUNTER 2020-09-05 14:09 | Emergency (ER) | payer SELFPAY ==
--- NOTE | 2020-09-05 15:44 | CT ---
CT ABDOMEN NONCONTRAST CT PELVIS NONCONTRAST: (Urolithiasis protocol) DATE: 09/05/2020 HISTORY: 49-year-old male with abdominal pain COMPARISON: 05/26/2016 TECHNIQUE: No IV access could be achieved. IV injection of iodinated contrast media: None Oral contrast media: None FINDINGS: Other than for urolithiasis, the lack of IV and oral contrast limits the evaluation. The previously demonstrated fat-containing ventral hernia has increased in size. The transverse diame ter of the diastases between the right and left rectus abdominis muscles is approximately 66.5 cm. Through this, intraperitoneal fat, which presumably consists of omentum and perhaps some mesentery, h erniates into the subcutaneous fat, with size of the hernia sac measuring 13 x 6.5 x 10 cm. Questionable mild fat stranding within this hernia sac versus septations. No bowel loop herniates. Superior to this hernia, there is a thin membrane-like shaped covering the gap between the diastatic rectus abdominous muscles. There is no small bowel dilation, ascites, colonic diverticulitis, pleural effusion, or basilar pulmo nary consolidation. Normal appendix. Within the limitations of noncontrast scan, no major pathology of liver, abdominal aorta, kidneys, pa ncreas, adrenals, spleen, or urinary bladder. No renal, ureteral, or bladder calculus. No hydronephrosis. IMPRESSION: Interval increase in size of the fat-containing ventral hernia
[2020-09-05 16:13] LABS: #Basophils 0.2 thou/uL (0.0-0.2); #Lymphocytes 2.5 thou/uL (1.20-3.40); #Monocytes 0.4 thou/uL (0.11-0.59); #Neutrophils 8.3 thou/uL (1.40-6.50); %Basophils 1.4 % (0.0-1.0); %Lymphocytes 21.7 % (21.0-51.0); %Monocytes 3.9 % (0.0-10.0); Hemoglobin 13.6 g/dL (14.0-18.0); Mean Corpuscular HGB CONC 30.1 g/dL (32.0-36.0); Mean Corpuscular Hemoglobin 23.6 pg (27.0-31.0); Mean Corpuscular Volume 78.5 fL (78.0-98.0); Mean Platelet Volume 7.9 fL (7.4-10.4); Platelet Count 326 thou/uL (130-400); RBC Distribution Width 14.2 % (11.5-14.5); Red Blood Cell (RBC) Count 5.74 mill/uL (4.70-6.10); White Blood Cell (WBC) Count 11.4 thou/uL (4.8-10.8)
[2020-09-05 16:27] LABS: ALT (SGPT) 15 U/L (8-55); AST (SGOT) 15 U/L (5-34); Albumin 4.4 g/dL (3.5-5.0); Alkaline Phosphatase 64 U/L (40-110); Anion Gap 19 mmol/L (10-20); BUN (Urea Nitrogen) 17 mg/dL (8.9-20.6); Bilirubin, Total 0.8 mg/dL (0.2-1.2); Calc. Creatinine Clearance 0 mL/min (70-130); Calcium 9.1 mg/dL (7.8-10.44); Carbon Dioxide 24 mmol/L (22-29); Chloride 99 mmol/L (98-107); Estimated GFR-MDRD 68; Globulin 3.5 g/dL (2.4-3.5); Glucose 155 mg/dL (70-105); Lipase 9 U/L (8-78); Potassium 3.4 mmol/L (3.5-5.1); Protein, Total 7.9 g/dL (6.0-8.3); Sodium 139 mmol/L (136-145)
[2020-09-05 16:32] LABS: Nucleated RBC 0 % (0)
== END 2020-09-05 17:37 | disposition home or self-care (01) ==
LOC: MADERS 14:09
DX: K43.9 Ventral hernia without obstruction or gangrene (principal); J44.9 Chronic obstructive pulmonary disease, unspecified; K74.60 Unspecified cirrhosis of liver; Z87.891 Personal history of nicotine dependence; Z79.891 Long term (current) use of opiate analgesic; Z79.899 Other long term (current) drug therapy; Z79.51 Long term (current) use of inhaled steroids
CPT/HCPCS: 74176; 80053; 83690; 85025

== ENCOUNTER 2020-11-16 11:59 | Emergency (ER) | payer SELFPAY ==
--- NOTE | 2020-11-16 13:00 | RAD ---
RADIOGRAPH CHEST 1 VIEW: DATE: 11/16/2020 TIME: 12:45 PM HISTORY: 49-year-old male with dyspnea and chest pressure COMPARISON: 09/02/2020 FINDINGS: Subtle faint mild patchy density at left lower lung zone apparently new since prior study. The rest of the visualized lung pace are clear. Cardiomediastinal silhouette is normal. No pneumoth orax. IMPRESSION: Questionable mild faint left lower lung zone infiltrate versus artifact. Recommend follow-up
[2020-11-16] MEDS ORDERED: methylPREDNISolone Sod Succ/PF 125 MG/2 ML VIAL ONE (13:21)
[2020-11-16 13:57] LABS: #Basophils 0.2 thou/uL (0.0-0.2); #Eosinphils 0.2 thou/uL (0.0-0.7); #Lymphocytes 1.8 thou/uL (1.20-3.40); #Monocytes 0.5 thou/uL (0.11-0.59); #Neutrophils 5.8 thou/uL (1.40-6.50); %Basophils 2.3 % (0.0-1.0); %Eosinophils 2.9 % (0.0-10.0); %Lymphocytes 20.9 % (21.0-51.0); %Monocytes 5.9 % (0.0-10.0); Hemoglobin 13.3 g/dL (14.0-18.0); MDiff Complete? YES; Mean Corpuscular HGB CONC 30.8 g/dL (32.0-36.0); Mean Corpuscular Hemoglobin 23.4 pg (27.0-31.0); Mean Corpuscular Volume 75.9 fL (78.0-98.0); Mean Platelet Volume 8.5 fL (7.4-10.4); Platelet Count 401 thou/uL (130-400); Polychromasia SLIGHT = 2-3 cells (100X) (0-2/hpf); RBC Distribution Width 14.6 % (11.5-14.5); White Blood Cell (WBC) Count 8.5 thou/uL (4.8-10.8)
[2020-11-16 13:58] LABS: ALT (SGPT) 13 U/L (8-55); AST (SGOT) 18 U/L (5-34); Albumin 4.1 g/dL (3.5-5.0); Alkaline Phosphatase 57 U/L (40-110); Anion Gap 15 mmol/L (10-20); BUN (Urea Nitrogen) 9 mg/dL (8.9-20.6); Bilirubin, Total 0.4 mg/dL (0.2-1.2); Calc. Creatinine Clearance 0 mL/min (70-130); Calcium 8.8 mg/dL (7.8-10.44); Carbon Dioxide 23 mmol/L (22-29); Chloride 104 mmol/L (98-107); Globulin 3.5 g/dL (2.4-3.5); Glucose 106 mg/dL (70-105); Potassium 4.4 mmol/L (3.5-5.1); Protein, Total 7.6 g/dL (6.0-8.3); Sodium 138 mmol/L (136-145)
[2020-11-16] MEDS ORDERED: Doxycycline 100 MG CAP ONE (14:29)
== END 2020-11-16 14:52 | disposition home or self-care (01) ==
LOC: MADERS 11:59
DX: J44.1 Chronic obstructive pulmonary disease with (acute) exacerbation (principal); K74.60 Unspecified cirrhosis of liver; Z87.891 Personal history of nicotine dependence; Z87.19 Personal history of other diseases of the digestive system; Z79.51 Long term (current) use of inhaled steroids
CPT/HCPCS: 71045; 80053; 83880; 84484; 85025; 93005; 96374; J2930; J7620

== ENCOUNTER 2021-01-14 21:45 | Emergency (ER) | payer OTHER, SELFPAY ==
[2021-01-14] MEDS ORDERED: predniSONE 20 MG TAB ONE (22:15)
== END 2021-01-14 22:52 | disposition home or self-care (01) ==
LOC: MADERS 21:45
DX: J44.1 Chronic obstructive pulmonary disease with (acute) exacerbation (principal); K74.60 Unspecified cirrhosis of liver; Z87.891 Personal history of nicotine dependence
CPT/HCPCS: 71045; J1642; J7512; J7620

== ENCOUNTER 2021-03-15 15:42 | Emergency (ER) | payer SELFPAY ==
[2021-03-15] MEDS ORDERED: Ibuprofen 600 MG TAB ONE (16:01)
[2021-03-15 16:35] LABS: #Basophils 0.2 thou/uL (0.0-0.2); #Eosinphils 0.3 thou/uL (0.0-0.7); #Lymphocytes 1.6 thou/uL (1.20-3.40); #Monocytes 0.7 thou/uL (0.11-0.59); #Neutrophils 6.5 thou/uL (1.40-6.50); %Basophils 1.8 % (0.0-1.0); %Eosinophils 3.6 % (0.0-10.0); %Lymphocytes 17.5 % (21.0-51.0); %Monocytes 7.4 % (0.0-10.0); %Neutrophils 69.8 % (42.0-75.0); Anisocytosis SLIGHT = 6-15 cells (100X) (0-5/hpf); Hemoglobin 11.8 g/dL (14.0-18.0); Hypochromia SLIGHT = 6-15 cells (100X) (0-5/hpf); MDiff Complete? YES; Mean Corpuscular HGB CONC 30.2 g/dL (32.0-36.0); Mean Corpuscular Hemoglobin 24.7 pg (27.0-31.0); Mean Corpuscular Volume 81.7 fL (78.0-98.0); Mean Platelet Volume 8.8 fL (7.4-10.4); Platelet Count 306 thou/uL (130-400); Platelet Morphology Comment Appears Adequate; RBC Distribution Width 15.2 % (11.5-14.5); Red Blood Cell (RBC) Count 4.78 mill/uL (4.70-6.10); White Blood Cell (WBC) Count 9.4 thou/uL (4.8-10.8)
[2021-03-15 16:42] LABS: ALT (SGPT) 10 U/L (8-55); AST (SGOT) 11 U/L (5-34); Albumin 3.9 g/dL (3.5-5.0); Alkaline Phosphatase 66 U/L (40-110); Anion Gap 14 mmol/L (10-20); BUN (Urea Nitrogen) 8 mg/dL (8.9-20.6); Bilirubin, Total 0.7 mg/dL (0.2-1.2); Calc. Creatinine Clearance 0 mL/min (70-130); Calcium 8.4 mg/dL (7.8-10.44); Carbon Dioxide 24 mmol/L (22-29); Chloride 102 mmol/L (98-107); Globulin 3.2 g/dL (2.4-3.5); Glucose 128 mg/dL (70-105); Potassium 3.4 mmol/L (3.5-5.1); Protein, Total 7.1 g/dL (6.0-8.3); Sodium 137 mmol/L (136-145)
[2021-03-15] MEDS ORDERED: methylPREDNISolone Sod Succ/PF 125 MG/2 ML VIAL ONE (17:26)
[2021-03-15] MEDS ORDERED: Sodium Chloride 0.9% 100 ML ONE (18:18)
[2021-03-15] MEDS ORDERED: cefTRIAXone\\ROCEPHIN 1 GM VIAL ONE (18:18)
[2021-03-17 13:54] LABS: SARS-CoV-2 PCR by NAA Not Detected (NotDetected)
== END 2021-03-15 19:00 | disposition home or self-care (01) ==
LOC: MADERS 15:42
DX: J44.1 Chronic obstructive pulmonary disease with (acute) exacerbation (principal); Z87.891 Personal history of nicotine dependence
CPT/HCPCS: 36415; 71046; 80053; 85025; 87040; 87804; 96365; 96375; J0696; J2930; J3490; J7620; U0003; U0005